=== PATIENT | female | born 1940 | race Caucasian/White ===

== ENCOUNTER 2018-11-14 14:06 | Inpatient (IN) ==
[~2018-11-14 14:06] MED LIST: CORTROSYN IV ONE
[2018-11-14] MEDS ORDERED: PHENERGAN IV PRN (15:41)
[2018-11-14] MEDS ORDERED: SODIUM CHLORIDE 0.9% INJ PRN (15:41)
[2018-11-14 16:45] LABS: HEMATOCRIT 35.7 % (37.0-47.0); HEMOGLOBIN 11.5 g/dL (12.0-16.0); MCH 32.1 PG (27-31); MCHC 32.2 g/dL (33-37); MCV 99.7 FL (81-99); MPV 10.1 FL (7.4-10.4); RBC 3.58 XMIL (4.2-5.4); RDW 14.1 % (11.5-14.5); WBC 7.13 X1000 (4.8-10.8)
[2018-11-14 16:58] LABS: CALCIUM 8.8 mg/dL (8.8-10.2); CREATININE 1.1 mg/dL (0.5-0.9); POTASSIUM 4.3 mmol/L (3.5-5.1)
--- NOTE | 2018-11-14 17:05 | Diag Imaging Result Doc PS360 ---
EXAM: MRI BRAIN W/WO CONTRAST INDICATION: FREQUENT FALLS COMPARISON: 09/14/2017 FINDINGS: There is no evidence of acute infarct. There is mild patchy T2/FLAIR hyperintensity in the periventricular and subcortical white matter suggesting mild microangiopathy. There is moderate pontine white matter microangiopathy. These findings are stable. There is no discrete intracranial mass, mass effect, or intracranial hemorrhage. There is no evidence of abnormal intracranial enhancement. The surrounding soft tissues and bony structures are essentially unremarkable. IMPRESSION: Stable chronic appearing white matter changes as described. No definite acute intracranial pathology. Electronically signed by Meir George 11/14/2018 5:03 PM
[2018-11-14 17:31] LABS: URINE SOURCE CATH
[2018-11-14 17:35] LABS: BILIRUBIN URINE NEGATIVE (NEGATIVE); BLOOD URINE SMALL (NEGATIVE); COLOR STRAW; GLUCOSE URINE NEGATIVE (NEGATIVE); KETONE URINE NEGATIVE (NEGATIVE); LEUKOCYTES URINE NEGATIVE (NEGATIVE); NITRITE URINE NEGATIVE (NEGATIVE); PH URINE 5.5; PROTEIN URINE TRACE mg/dL (NEGATIVE); TURBIDITY URINE CLEAR (CLEAR); UROBILINOGEN URINE NORMAL (NORMAL)
--- NOTE | 2018-11-14 17:35 | Diag Imaging Result Doc PS360 ---
EXAM: CHEST-PORTABLE INDICATION: HTN TECHNIQUE: One view COMPARISON: 08/27/2017 FINDINGS: The lungs are grossly clear. There is no discrete pleural fluid collection or pneumothorax. The cardiomediastinal silhouette and central vasculature are grossly unremarkable. IMPRESSION: No evidence of acute pathology by plain radiograph. Electronically signed by Meir George 11/14/2018 5:32 PM
[2018-11-14 17:36] LABS: UR EPITHELIAL CELLS <10 /HPF (<10); URINE BACTERIA NEGATIVE /HPF; URINE RBC <10 /HPF (<10); URINE WBC <10 /HPF (<10)
[2018-11-14] MEDS: NS 1,000 ML IV SCH (18:00)
[2018-11-14] MEDS: LOVENOX SUBQ SCH (18:03)
[2018-11-14] MEDS: SEROQUEL PO SCH (21:39)
[2018-11-14] MEDS: PRINIVIL PO SCH (21:40)
[2018-11-14] MEDS: TOPROL XL PO SCH (21:40)
[2018-11-15] MEDS: TOPROL XL PO SCH ×3 (06:53→22:34)
[2018-11-15] MEDS: PRINIVIL PO SCH ×3 (06:54→22:35)
[2018-11-15] MEDS ORDERED: NORVASC PO SCH ×2 (09:00)
[2018-11-15] MEDS ORDERED: ARICEPT PO SCH (09:00)
--- NOTE | 2018-11-15 09:57 | HISTORY AND PHYSICAL ---
HISTORY OF PRESENT ILLNESS: Mrs. Eri Aguirre is a 78-year-old lady with a history of multiple medical problems including essential hypertension, depression and vascular dementia with behavior issues who is well known to me. The family reported that over the past several weeks she has had increasing episodes of confusion and disorientation. She has been having spells wears she goes in to a trance light state and shakes all over. They have not noted any episodes of urinary or bowel incontinence. She has not had any focal neurologic deficits such as unilateral weakness, or sudden loss of vision in 1 eye. She has not had any fever, chills, nausea or vomiting. The family reports that she has fallen multiple times. She had fallen earlier in the year and sustained a right hip fracture. She feels very unsteady on her feet. She tends to fall both to the right and left. She can control her forward and backward momentum. She does not have a resting tremor. A previous MRI of the brain demonstrated diffuse chronic white matter changes. She was not orthostatic in my office. PAST MEDICAL HISTORY: Depression, vascular dementia, essential hypertension. PAST SURGICAL HISTORY: Tubal ligation. Cataract surgery. Right total hip. ALLERGIES: No known drug allergies. FAMILY HISTORY: Her mother had hypertension. Her father had peripheral arterial disease status post amputation. SOCIAL HISTORY: She never smoked. She does not consume alcoholic beverages. She is . MEDICATIONS: Seroquel 12.5 mg at night daily,Aricept 10 mg daily, Paxil 20 mg daily, amlodipine 2.5 mg daily, Naprosyn 500 mg b.i.d., lisinopril 10 mg b.i.d., Toprol-XL 25 mg b.i.d., aspirin 81 mg daily. REVIEW OF SYSTEMS: She denies any recent weight gain or weight loss.HEENT: She wears glasses. She is somewhat hard of hearing. CV: No chest pain, palpitations, or anginal equivalents. Pulmonary: No shortness of breath, paroxysmal nocturnal dyspnea , orthopnea. GI: No reflux, dysphagia, melena, hematochezia, change in bowel habits, or rectal bleeding. Endocrine: No polyuria, no polydipsia. No cold or heat intolerance. SKIN: No easy bruisability.: No leakage of urine with coughing or laughing. Neurologic: No migraines or seizures. Psychiatric: She has a history of depression. PHYSICAL EXAMINATION: This is a chronically ill-appearing, 78-year-old lady in no apparent distress. VITAL SIGNS: Blood pressure 128/70 sitting, 126/60 standing, pulse 59, height 62 inches, weight 129 pounds. BMI 23.6 HEENT: Fundi with arteriolar wall thickening. Pupils equal, round, reactive to light. Extraocular eye movements intact. TMs without bullae. NECK: Supple. No masses, JVD or bruits. CV: Regular rate and rhythm. LUNGS: Clear. ABDOMEN: Soft, nontender, with active bowel sounds. No hepatosplenomegaly. No abdominal bruits. EXTREMITIES: Without edema. SKIN: No palpable purpura. BREAST, MAIL AGENT AND RECTAL: Deferred.Neuro: She is oriented to name and place. She was able to identify her daughter hours. Cranial nerves 2-12 intact grossly. Tongue was midline. Cerebellar function including [id number]-px-[id number] and finger to nose was not intact. She could not walk on her toes. She could not perform heel-to-toe ambulation. She had normal tone and strength in the upper and lower extremities. ASSESSMENT AND PLAN: 1. Hypertension. Her blood pressure is stable. We will continue Toprol-XL 25 mg b.i.d., lisinopril 10 mg b.i.d. and amlodipine 2.5 mg at night. 2. Vascular dementia. She has had some increasing episodes of confusion and more frequent falls. Certainly she could have had a stroke. I will check an MRI of the brain. She certainly could be having subclinical seizures. We will check an EEG. This also could represent apraxia. She is already taking Aricept. We potentially could increase the Aricept or try low-dose Namenda. 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 She is a high risk for falls. We will consult physical therapy for evaluation. We will consult [facility] for short-term rehab. The patient is interested in [facility]. 3. Depression we will continue Paxil 20 mg daily. PLAN: Based on her clinical presentation and comorbid conditions, I believe that admission to the hospital is both neck necessary and reasonable. I anticipate that she will be in the hospital for at least 2 midnights and I will therefore place her in inpatient status. We will begin Lovenox 40 mg subcutaneously daily for DVT prophylaxis. cc: Gaurav Sloan MD
[2018-11-15] MEDS: ARICEPT PO SCH (10:47)
[2018-11-15] MEDS: KEFLEX PO SCH ×2 (10:47→22:34)
[2018-11-15] MEDS: PAXIL PO SCH (10:47)
[2018-11-15] MEDS: NAMENDA PO SCH (10:47)
[2018-11-15] MEDS: NS 1,000 ML IV SCH (10:49)
--- NOTE | 2018-11-15 17:33 | PROGRESS NOTE ---
DATE: 11/15/2018 Mrs. Aguirre was admitted with encephalopathy and frequent falls. Blood counts, renal function and urinalysis were normal. An MRI demonstrated diffuse chronic white matter changes. Her blood pressure is fluctuating. She has not had any episodes of orthostatic hypotension. She denies any chest pain, palpitations, or anginal equivalents. She is having shaking like spells. She is afebrile. Pulse 56, respiratory rate 16, BP 191/64.CV: Regular rate and rhythm. Lungs: Clear. Abdomen: Soft, nontender, with active bowel sounds. No hepatosplenomegaly. No abdominal bruits. ASSESSMENT AND PLAN: 1. Encephalopathy. There does not appear to be any evidence of infection. There is no new stroke. I wonder if she could have subclinical seizures. We will arrange for an EEG. 2. Hypertension. Blood pressure is too high. I will increase the amlodipine to 5 mg at night. 3. Frequent falls. She has not been orthostatic. She does have cerebellar signs on exam. We will continue physical therapy. We are awaiting residential placement for short-term rehab. cc: Gaurav Sloan MD MTDD
[2018-11-15] MEDS: SEROQUEL PO SCH (22:34)
[2018-11-15] MEDS: NORVASC PO SCH (22:35)
[2018-11-15] MEDS: LOVENOX SUBQ SCH (22:47)
[2018-11-16] MEDS: NS 1,000 ML IV SCH ×2 (06:07→20:19)
[2018-11-16] MEDS: KEFLEX PO SCH ×2 (08:04→21:51)
[2018-11-16] MEDS: NAMENDA PO SCH (08:05)
[2018-11-16] MEDS: ARICEPT PO SCH (08:05)
[2018-11-16] MEDS: TOPROL XL PO SCH ×2 (08:05→21:52)
[2018-11-16] MEDS: PRINIVIL PO SCH ×2 (08:05→21:52)
[2018-11-16] MEDS: PAXIL PO SCH (08:05)
[2018-11-16] MEDS: TYLENOL PO PRN (15:39)
--- NOTE | 2018-11-16 20:23 | PROGRESS NOTE ---
DATE: 11/16/2018 Mrs. Aguirre was admitted to [facility] with worsening confusion and disorientation as well as more frequent falls. No evidence of an underlying infection has been noted. MRI demonstrated chronic white matter changes and atrophy but no acute stroke. She has not been orthostatic. Cortrosyn stimulation test was unremarkable. She has had some trance-like episodes and generalized shaking and EEG is pending. This morning, she seems much more alert and interactive. She is oriented to name and place. She can identify her family member. She does not know the date. Blood pressure is still fluctuating. She denies any chest pain, palpitations, or anginal equivalents. Blood pressure 171/66. Pulse 54, respiratory rate 18, temperature 97.3 degrees. CV: Regular rate and rhythm. Lungs: Clear. Abdomen: Soft, nontender, with active bowel sounds. Neuro: Cerebellar function including vmwrlw-on-woel was not intact. Cranial nerves 2-12 intact grossly. She has normal tone and strength in the upper and lower extremities bilaterally. ASSESSMENT AND PLAN: 1. Vascular dementia with behavior issues. She was more confused and disoriented. We felt that she was encephalopathic. There has been no evidence of an acute stroke. Electrolytes are within normal limits. We are concerned about the possibility of subclinical seizures. An EEG is pending. We are continuing physical therapy and a referral has been made to [facility] for short- term rehab placement. 2. Hypertension. Her blood pressure still fluctuates. When we have been really aggressive treating her blood pressure, she has frequent episodes of orthostatic hypotension. Given her falls, I do not want her to become with orthostatic. Ideally I would like to try to keep her systolic blood pressures in the 150s and 160s in order to avoid episodes of hypotension. I increased the amlodipine to 5 mg and she got her first dose last night. We will continue to monitor her blood pressure. cc: Gaurav Sloan MD
[2018-11-16] MEDS: NORVASC PO SCH (21:51)
[2018-11-16] MEDS: LOVENOX SUBQ SCH (21:51)
[2018-11-16] MEDS: SEROQUEL PO SCH (21:51)
[2018-11-17] MEDS: NS 1,000 ML IV SCH (02:40)
[2018-11-17 06:58] LABS: HEMATOCRIT 33.5 % (37.0-47.0); MCH 32.4 PG (27-31); MCHC 32.8 g/dL (33-37); MCV 98.8 FL (81-99); RBC 3.39 XMIL (4.2-5.4); WBC 5.82 X1000 (4.8-10.8)
[2018-11-17 07:00] LABS: POTASSIUM 3.9 mmol/L (3.5-5.1)
[2018-11-17] MEDS: PAXIL PO SCH (09:17)
[2018-11-17] MEDS: TOPROL XL PO SCH ×2 (09:17→22:42)
[2018-11-17] MEDS: NAMENDA PO SCH (09:17)
[2018-11-17] MEDS: PRINIVIL PO SCH ×2 (09:17→22:42)
[2018-11-17] MEDS: ARICEPT PO SCH (09:17)
[2018-11-17] MEDS: KEFLEX PO SCH ×2 (09:18→22:43)
[2018-11-17] MEDS ORDERED: MAGNESIUM SULFATE IV SCH ×6 (10:45)
[2018-11-17] MEDS ORDERED: THIAMINE IV SCH ×6 (10:45)
[2018-11-17] MEDS ORDERED: [UNRECOGNIZED DRUG - OTHER] IV SCH ×6 (10:45)
[2018-11-17] MEDS ORDERED: POTASSIUM CHLORIDE 20 MEQ, MAGNESIUM SULFATE 2 GM, THIAMINE 100 MG, FOLIC ACID 1 MG, M.... IV SCH ×6 (10:45)
[2018-11-17] MEDS ORDERED: POTASSIUM CHLORIDE IV SCH ×6 (10:45)
[2018-11-17] MEDS ORDERED: FOLIC ACID IV SCH ×6 (10:45)
--- NOTE | 2018-11-17 10:57 | PROGRESS NOTE ---
DATE: 11/17/2018 Ms. Aguirre was admitted to [facility] with encephalopathy. She had increasing confusion and disorientation. She does have underlying vascular dementia. MRI of the brain demonstrated no evidence of an acute. An EEG is still pending. There has been no evidence of infection. Her blood pressure has remained quite labile. I suspect she has had a hypertensive encephalopathy. She denies any chest pain, palpitations, or anginal equivalents. She has a history of cerebellar ataxia. She has had frequent falls. She has been working with physical therapy. We are awaiting [facility] placement for short-term rehab. PHYSICAL EXAMINATION: Temperature 97.6 degrees, pulse 54, respirations 18, BP 171/75. CV: Regular rate and rhythm. Lungs: Clear. Abdomen: Soft, nontender, with active bowel sounds. ASSESSMENT AND PLAN: 1. Hypertensive encephalopathy with a history of underlying vascular dementia. She seems more alert this morning. She is oriented to name and place. She is able to identify family members. We will continue Aricept 10 mg daily and I have started Namenda titration pack. 2. Hypertension. Blood pressure is too high. I will increase the amlodipine to 5 mg twice a day. 3. Frequent falls. I believe that her falls are a combination of apraxia as well as cerebellar ataxia. I am hoping that continuing Aricept and initiating Namenda, that her focal motor skills will improve. We will continue physical therapy and are awaiting short-term rehab placement. I have stressed to the family that there is no significant cure for cerebellar ataxia and it would be in her best interest to utilize a walker at all times. cc: Gaurav Sloan MD
[2018-11-17] MEDS: NORVASC PO SCH ×2 (12:46→22:42)
[2018-11-17] MEDS ORDERED: FOLIC ACID IV ONE ×6 (13:00)
[2018-11-17] MEDS ORDERED: POTASSIUM CHLORIDE IV ONE ×6 (13:00)
[2018-11-17] MEDS ORDERED: [UNRECOGNIZED DRUG - OTHER] IV ONE ×6 (13:00)
[2018-11-17] MEDS ORDERED: MAGNESIUM SULFATE IV ONE ×6 (13:00)
[2018-11-17] MEDS ORDERED: THIAMINE IV ONE ×6 (13:00)
[2018-11-17] MEDS: TYLENOL PO PRN (15:05)
[2018-11-17] MEDS: SEROQUEL PO SCH (22:42)
[2018-11-17] MEDS: LOVENOX SUBQ SCH (22:43)
[2018-11-18 06:11] LABS: CALCIUM 9.2 mg/dL (8.8-10.2); POTASSIUM 3.9 mmol/L (3.5-5.1)
[2018-11-18 07:19] VITALS: BP 156/57
[2018-11-18] MEDS: KEFLEX PO SCH (08:46)
[2018-11-18] MEDS: PAXIL PO SCH (08:46)
[2018-11-18] MEDS: NORVASC PO SCH (08:46)
[2018-11-18] MEDS: ARICEPT PO SCH (08:46)
[2018-11-18] MEDS: TOPROL XL PO SCH (08:46)
[2018-11-18] MEDS: NAMENDA PO SCH (08:46)
[2018-11-18] MEDS: PRINIVIL PO SCH (08:46)
--- NOTE | 2018-11-18 09:21 | DISCHARGE SUMMARY ---
ADMISSION DATE: 11/14/2018 DISCHARGE DATE: 11/18/2018 DISCHARGE DIAGNOSES: 1. Hypertensive encephalopathy. 2. Vascular dementia with behavior issues. 3. Essential hypertension. 4. situational depression 5. Apraxia. 6. Cerebellar ataxia. 7. Frequent falls. DISCHARGE INSTRUCTIONS: 1. The patient will be tried transported via private car to [facility] to undergo short-term rehab. 2. Activity as tolerated. 3. Healthy heart diet. DISCHARGE MEDICATIONS: 1. Seroquel 12.5 mg at bedtime. 2. Acetaminophen 650 mg q.6 hours p.r.n. pain or temperature greater than 101. 3. Amlodipine 5 mg b.i.d. 4. Keflex 500 mg b.i.d. for 7 days daily. 5. Aricept 10 mg daily. 6. Lisinopril 10 mg daily. 7. Namenda 5 mg daily. 8. Metoprolol 25 mg daily. 9. Paxil 20 mg daily. DISCHARGE PHYSICAL EXAMINATION: General: This is an elderly, frail, 78-year-old lady in no apparent distress. Vital Signs: Temperature 97.8 degrees, pulse 54, respirations 16, BP 156/57. Cardiovascular: Regular rate and rhythm. Lungs: Clear. Abdomen: Soft, nontender, with active bowel sounds. Neurologic: She is awake and easily arousable. She is oriented to name and place. Cerebellar function including qargag-ky-bkmf and dfew-dt-apyd wore abnormal. She has normal tone and strength in the upper and lower extremities. HOSPITAL COURSE: Ms. Eri Aguirre has a longstanding history of vascular dementia with behavior issues. Over the days preceding admission, her family reported that she had had increasing confusion and disorientation. The patient was admitted to [facility] for evaluation of the worsening confusion and disorientation. Laboratory studies demonstrated no evidence of infection. An MRI demonstrated chronic white matter changes without evidence of an acute infarction. She had some periodic shaking movements and we ordered an EEG, and the results are pending at the time of discharge. She has had no previous history of seizures. Her blood pressure was quite labile. Systolic blood pressures were in the 190s and 200s. We felt that she had a hypertensive encephalopathy. With more aggressive management of her blood pressure, her mental status returned to baseline. She has a history of frequent falls. She has fallen multiple times over the past several weeks. She had become progressively weaker. She had cerebellar exams on examination. She was unable to perform [id number]. She was unable to walk on her toes. She could not perform heel-to-toe ambulation. We also suspect that the cause of the underlying white matter changes, that she has some degree of apraxia. We did not want to increase the Aricept for fear that it would cause nausea. We added low-dose Namenda 5 mg daily. We consulted physical therapy who began to work with the patient. I have stressed to Mrs. Aguirre the necessity of utilizing a walker at all times. We felt that she would benefit from short-term rehab and a referral was made to [facility] for short-term rehab bed placement. She has a history of depression. Moods were stable. We will continue Paxil 20 mg daily. Having reached maximum hospital benefit, the patient was discharged in stable condition. cc: Gaurav Sloan MD MTDD
--- NOTE | 2018-11-18 10:03 | EEG REPORT ---
DATE: 11/15/2018 EEG NUMBER: [id number]. COMMENT: This is a digitally recorded EEG on a 78-year-old patient with reported syncope, tremulousness. FINDINGS: During waking, there is 4 to 6 hertz theta rhythm present abundantly across the hemispheres. There was not a sustained posterior dominant rhythm identified. Photic stimulation did not significantly alter the record. Hyperventilation was not done. Drowsing occurred with appearance of more generalized slowing. Stage 2 sleep was not recorded. No definite epileptiform discharge was identified. INTERPRETATION: Abnormal electroencephalogram because of generalized slowing. CORRELATION: This is indicative of a diffuse encephalopathy, minimal for age and nonspecific. The absence of epileptiform discharges on a single EEG does not exclude a clinical diagnosis of seizures. cc: MD Gaurav Cooney III, MD MTDD
== END 2018-11-18 10:57 | DRG 78 ==
LOC: DIRADM 14:06 → 4N 15:10
PROVIDERS: ADMIT Internal Medicine; ATTEND Internal Medicine